=== PATIENT | female | born 1975 | race Caucasian/White ===

== ENCOUNTER → 2020-12-19 | Outpatient (CLI) | payer MEDICARE, OTHER ==
[~2020-12-19] MED LIST: ADDERALL 20 MG20 MG PO; ARNUITY ELLIP100 MCG INH; AUGMENTIN 875-1 EACH PO; BREO ELLIPTA 21 EACH INH; BREO INH; CEFUROXIME250 MG PO; CETIRIZINE HCL10 MG PO; CLARITIN10 MG PO; COLACE 100MG C100 MG PO; CYANOCOBAL1000 MCG/1 INJ; CYCLOBENZAPRINE10 MG PO; CYMBALTA60 MG PO; DEXTROAMP-AMPHE10 MG PO; DICLOFENAC POTA50 MG PO; ECOTRIN81 MG PO; FEOSOL325 MG PO; FLEXERIL 10 MG10 MG PO; HYDROCODON-ACE1 EAC6 PO; IBUPROFEN IB200 MG PO; IRON325 M1 PO; K-DUR TAB 10 M10 MEQ PO; LAMICTAL TAB 2525 MG PO; LASIX20 MG PO; LEXAPRO TAB 1010 MG PO; LYRICA150 MG PO; MICROZIDE12.5 MG PO; MIRALAX17 GM PO; MYRBETRIQ25 MG PO; MYRBETRIQ50 MG PO; NORCO 10-325 T1 EACH PO; OXYCODONE HCL10 MG PO; PREDNISONE10 MG PO; PROVENTIL HFA6.7 GM INH; REQUIP4 MG PO; ROBITUSSIN AC480 ML PO; ROPINIROLE HCL4 MG PO; SINGULAIR10 MG PO; SYNTHROID 50 M50 MCG PO; SYNTHROID25 MCG PO; TENORMIN 25 MG25 MG PO; TESSALON PERLE100 MG PO; TOVIAZ4 MG PO; TRAZODONE HCL100 MG PO; ULTRAM50 MG PO; VENTOLIN HFA 66.7 GM INH; VOLTAREN EC 5050 MG PO; WELLBUTRIN SR150 MG PO; ZOFRAN4 MG PO; ZYRTEC10 M3 PO
[2020-12-19 11:37] LABS: HEMOGLOBIN 12.8 gm/dl (12.3-15.3); RED BLOOD COUNT 4.36 M/UL (4.00-5.10); WHITE BLOOD COUNT 7.4 K/UL (4.5-11.0)
[2020-12-19 12:16] LABS: BUN/CREATININE RATIO 21 (0-10)
== END ==
LOC: OPSV2 10:00
PROVIDERS: Anesthesiology; Obstetrics & Gynecology
DX: Z01.812 Encounter for preprocedural laboratory examination (principal); N80.6 Endometriosis in cutaneous scar
CPT/HCPCS: 36415; 80048; 81001; 85025

== ENCOUNTER → 2020-12-28 | Day surgery (SDC) | payer MEDICARE, OTHER | END | disposition home or self-care (01) | LOC: OR 09:18 | DX: M79.89 Other specified soft tissue disorders (principal); N80.9 Endometriosis, unspecified; F90.9 Attention-deficit hyperactivity disorder, unspecified type; E03.9 Hypothyroidism, unspecified; E66.01 Morbid (severe) obesity due to excess calories; G47.30 Sleep apnea, unspecified; M79.7 Fibromyalgia; I10 Essential (primary) hypertension; K76.0 Fatty (change of) liver, not elsewhere classified; D50.9 Iron deficiency anemia, unspecified; K21.9 Gastro-esophageal reflux disease without esophagitis; Z83.3 Family history of diabetes mellitus; M19.90 Unspecified osteoarthritis, unspecified site; Z80.9 Family history of malignant neoplasm, unspecified; Z82.49 Family history of ischemic heart disease and other diseases of the circulatory system; Z79.899 Other long term (current) drug therapy; Z90.49 Acquired absence of other specified parts of digestive tract; Z98.51 Tubal ligation status; Z68.41 Body mass index [BMI] 40.0-44.9, adult; Z20.822 Contact with and (suspected) exposure to COVID-19; Z87.891 Personal history of nicotine dependence | CPT/HCPCS: J1885; J2001; J2250; J2405; J2704; J2710; J2795; J3010; J7120 ==

== ENCOUNTER → 2021-04-09 | Outpatient (CLI) | payer MEDICARE, OTHER | LOC: SLEEP 21:30 | DX: G47.10 Hypersomnia, unspecified (principal); G47.33 Obstructive sleep apnea (adult) (pediatric); E66.01 Morbid (severe) obesity due to excess calories; F90.9 Attention-deficit hyperactivity disorder, unspecified type; G25.81 Restless legs syndrome; G62.9 Polyneuropathy, unspecified; J45.30 Mild persistent asthma, uncomplicated; Z68.41 Body mass index [BMI] 40.0-44.9, adult; Z87.891 Personal history of nicotine dependence; Z85.3 Personal history of malignant neoplasm of breast | CPT/HCPCS: 95811 ==

== ENCOUNTER → 2021-04-10 | Outpatient (CLI) | payer MEDICARE, OTHER | LOC: SLEEP 08:00 | DX: G47.10 Hypersomnia, unspecified (principal) | CPT/HCPCS: 95805 ==